=== PATIENT | female | born 1950 | race Caucasian/White ===

== ENCOUNTER → 2019-06-24 10:40 | Outpatient (CLI) | payer BC, SELFPAY ==
--- NOTE | ~2019-06-24 | MM_ITS ---
EXAMINATION: MM screening [facility] BI w gold HISTORY: Screening mammogram TECHNIQUE: Craniocaudal and mediolateral oblique 3-D tomosynthesis images were obtained and synthetic 2-D images were generated. CAD analysis was submitted and interpreted. COMPARISON: 06/16/2018 bilateral digital screening mammogram BREAST PARENCHYMAL COMPOSITION: The breasts are heterogeneously dense, which may obscure small masses . FINDINGS: Bilateral benign calcifications are noted. There is no evidence of suspicious mass, calcifi cation, or architectural distortion to suggest malignancy in either breast. There has been no suspici ous interval change. IMPRESSION: 1. No mammographic evidence of malignancy. 2. Recommend routine screening mammography in one year. BI-RADS Category 2: Benign finding(s). Reviewed, dictated and finalized at location A. E COORDINATOR
== END ==
PROVIDERS: PCP Internal Medicine; Visit Provider Obstetrics & Gynecology
DX: Z12.31 Encounter for screening mammogram for malignant neoplasm of breast (principal)
CPT/HCPCS: 77063; 77067

== ENCOUNTER → 2021-08-28 11:04 | Outpatient (CLI) | payer BC, SELFPAY ==
--- NOTE | ~2021-08-28 | MM_ITS ---
EXAMINATION: MM screening [facility] BI w gold HISTORY: Screening mammogram TECHNIQUE: Craniocaudal and mediolateral oblique 3-D tomosynthesis images were obtained and synthetic 2-D images were generated. CAD analysis was submitted and interpreted. COMPARISON: January 23, 2020, June 16, 2018 screening mammogram examinations BREAST PARENCHYMAL COMPOSITION: The breasts are heterogeneously dense, which may obscure small masses . FINDINGS: There are scattered bilateral benign calcifications. There is no evidence of suspicious mas s, calcification, or architectural distortion to suggest malignancy in either breast. There has been no suspicious interval change. IMPRESSION: 1. No mammographic evidence of malignancy. 2. Recommend routine screening mammography in one year. BI-RADS Category 2: Benign finding(s). Reviewed, dictated and finalized at location A.
== END ==
PROVIDERS: PCP Family Medicine; Visit Provider Obstetrics & Gynecology
DX: Z12.31 Encounter for screening mammogram for malignant neoplasm of breast (principal)
CPT/HCPCS: 77063; 77067

== ENCOUNTER → 2022-01-04 10:22 | Outpatient (CLI) | payer BC, SELFPAY ==
--- NOTE | ~2022-01-04 | DEXA_ITS ---
Bone Density Report Name: JARED MORFIN Age: 71 Sex: Female Ethnicity: White Date of : 1950 Indication: osteopenia; height loss; asthma or emphysema;postmenopausal Referring Provider: BRAD MENDEZ Study: Bone densitometry was performed. Exam Date: January 04, 2022 Accession number: [id number] Bone Density: Region BMD T-score Z-score Classification AP Spine (L1-L4) 0.867 -1.6 0.5 Osteopenia Femoral Neck (Left) 0.705 -1.3 0.5 Osteopenia Total Hip (Left) 0.792 -1.2 0.3 Osteopenia Femoral Neck (Right) 0.738 -1.0 0.8 Normal Total Hip (Right) 0.807 -1.1 0.4 Osteopenia Total Hip Mean 0.800 -1.2 0.4 Osteopenia World Health Organization criteria for BMD impression classify patients as: Normal (T-score at or above -1.0), Osteopenia (T-score between -1.0 and -2.5), or Osteoporosis (T-score at or below -2.5). 10-year Fracture Risk(1): Major Osteoporotic Fracture 9.3% Hip Fracture 1.2% Reported Risk Factors: [place] (), Neck BMD=0.705, BMI=28.8 (1) FRAX(R) Version 3.08. Fracture probability calculated for an untreated patient. Fracture probability may be lower if the patient has received treatment. Previous Exams: Region Exam Age BMD T-score BMD Change BMD Change Date g/cm2 vs Baseline vs Previous AP Spine(L1-L4) 01/04/2022 71 0.867 -1.6 0.028* 0.028* 06/16/2018 67 0.840 -1.9 Total Hip(Left) 01/04/2022 71 0.792 -1.2 0.011 0.011 06/16/2018 67 0.781 -1.3 Total Hip(Right) 01/04/2022 71 0.807 -1.1 0.057* 0.057* 06/16/2018 67 0.750 -1.6 *Denotes significance at 95% confidence level, LSC for AP Spine = 0.022 g/cm2, LSC for Total Hip = 0.027 g/cm2 Clinical Information Provided by Patient: Has the following medical conditions: Asthma or Emphysema Patient maximum height was 68 Menopause Age: 49 No regular weight bearing exercise Drinks caffeinated beverages Onset of menses at age 16 Number of children 3 Impression: The patient has low bone mass, based on the Total Spine T-score. The patient has an estimated ten-year risk of hip fracture of 1.2% and an estimated ten-year risk of major fracture of 9.3%, based on the WHO FRAX algorithm. No significant bone loss was observed. Discussion: BONE DENSITY IS LOW AT ONE OR MORE SKELETAL SITES. This patient's lowest T-score is low at one or more skeletal sites. It meets the World Health Organization's (WHO) criteria
== END ==
PROVIDERS: PCP Family Medicine; Visit Provider Obstetrics & Gynecology
DX: Z78.0 Asymptomatic menopausal state (principal); M85.88 Other specified disorders of bone density and structure, other site; M85.852 Other specified disorders of bone density and structure, left thigh; M85.851 Other specified disorders of bone density and structure, right thigh
CPT/HCPCS: 77080

== ENCOUNTER 2022-06-27 00:54 | Day surgery (SDC) | payer BC, SELFPAY ==
[2022-06-14 13:25] VITALS: BMI 25.4
--- NOTE | 2022-06-26 13:26 | PM.HPGS ---
History of Present Illness History of Present Illness Consent: Risks, benefits, and alternatives have been discussed and questions answered. Patient agrees to proceed with procedure. Chief complaint: neoplasm screening, hx of colon polyps Narrative: Kathy Potter is a 71 year old female Referred for colon cancer screening. She had 2 polyps removed about 6 years ago Review of Systems Review of Systems: All systems reviewed & are unremarkable except as noted in HPI and below PMFSH Past Medical History Medical History Allergies Arthritis Asthma History of herpes zoster Hx of tear of meniscus of knee joint Surgical History Surgical History H/O exploratory laparotomy History of carpal tunnel surgery History of dilation and curettage Family History Family History Father Family history of hypercholesterolemia Hypertension Family history of congestive heart failure, Onset Age: 87 Mother Family history of hypercholesterolemia Hypertension Patient's mother is in good health Sibling Patient's sister is in good health Patient's brother is in good health Grandparent Acute myocardial infarction, Onset Age: 68 Family history of emphysema, Onset Age: 87 Social History Social History Smoking packs per day: 1 Smoking cigarettes per day: 20.0 Smoking status: Former smoker Tobacco type: cigarettes Second hand tobacco smoke exposure: No Smoking end date: 05/12/14 Alcohol intake: current Drinks per week: 3 Substance use: never Substance use type: does not use Lack of Transportation: No Lack of Food: Never True Current Housing: I Have Housing Concerned About Future Housing: No Difficulty Paying Gas/Electric Bills: No Difficulty Paying for Meds: No Currently Unemployed: No Education: High School Diploma/GED Difficulty w/ Childcare or Family Care: No Living arrangements: with family Spiritual care concerns: No Meds Home Medications and Allergies Home Medications Medication Instructions Recorded Confirmed Type cetirizine 10 mg tablet 5 mg PO DAILY PRN allergy symptoms 06/08/21 06/27/22 Rx #90 tabs losartan 100 mg tablet 100 mg PO DAILY #90 tabs 06/08/21 06/27/22 Rx nystatin 100,000 unit/gram topical 1 applic topical BID PRN yeast 08/22/22 02/16/23 Rx ointment symptoms #15 grams omega-3 fatty acids 300 mg capsule 1,500 mg PO DAILY 12/31/21 06/27/22 History cyclobenzaprine 5 mg tablet 5 mg PO TID PRN muscle spasm #30 04/09/22 06/27/22 Rx tabs hydrochlorothiazide 25 mg tablet 25 mg PO DAILY #90 tabs 04/15/22 06/27/22 Rx atorvastatin 40 mg tablet See Rx Instructions .Route 05/31/22 06/27/22 Rx .COMPLEX #90 tabs alprazolam 0.5 mg tablet 0.5 mg PO DAILY PRN Anxiety 06/14/22 06/27/22 History calcium carbonate 600 mg-vitamin 1 tablet PO DAILY 06/14/22 06/27/22 History D3 10 mcg (400 unit) tablet (Calcium 600 + D(3)) Allergies Allergy/AdvReac Type Severity Reaction Status Date / Time No Known Allergies Allergy Verified 06/27/22 10:01 Exam Resp: Auscultation: clear to auscultation bilaterally Cardio: Rate: regular rate Rhythm: regular rhythm GI: GI Palp: Yes Soft to palpation and No Tenderness to palpation present (GI) Assessment and Plan Assessment and plan (1) Colon cancer screening: Code(s): Z12.11 - Encounter for screening for malignant neoplasm of colon Status: Acute Assessment and Plan: Colonoscopy with possible biopsy or polypectomy or cautery or injection of substances.
[2022-06-27 10:02] VITALS: BP 126/78; PULSE 119; RESP 16; TEMP 36.2; O2SAT 98
[2022-06-27] MEDS: LACTATED RINGERS 1,000 ML 150 ML IV CONT (10:04)
--- NOTE | 2022-06-27 10:28 | WPDANESEPPF ---
Anes - Initial Pre Proc Eval Procedure: Operation Date: 06/27/22 11:00 Proposed Procedures p Screening Colonoscopy - Jin Harris MD Date/Time: 06/27/22 10:28 Surgeon: Jin Harris MD Pre Op Diagnosis: neoplasm screening, hx of colon polyps Patient Data Age: 71 Gender: F Height: 1.73 m Weight: 83.2 kg Last Vital Signs Temp 97.2 F L 06/27/22 10:02 Pulse 119 H 06/27/22 10:02 Resp 16 06/27/22 10:02 BP 126/78 06/27/22 10:02 Pulse Ox 98 06/27/22 10:02 O2 Del Method Room Air 06/27/22 10:02 Allergies Allergy/AdvReac Type Severity Reaction Status Date / Time No Known Allergies Allergy Verified 06/27/22 10:01 Home Medications Medication Instructions Recorded Confirmed Type cetirizine 10 mg tablet 5 mg PO DAILY PRN allergy symptoms 06/08/21 06/27/22 Rx #90 tabs losartan 100 mg tablet 100 mg PO DAILY #90 tabs 06/08/21 06/27/22 Rx nystatin 100,000 unit/gram topical 1 applic topical BID PRN yeast 12/31/21 06/27/22 Rx ointment symptoms #15 grams omega-3 fatty acids 300 mg capsule 1,500 mg PO DAILY 12/31/21 06/27/22 History cyclobenzaprine 5 mg tablet 5 mg PO TID PRN muscle spasm #30 04/09/22 06/27/22 Rx tabs hydrochlorothiazide 25 mg tablet 25 mg PO DAILY #90 tabs 04/15/22 06/27/22 Rx atorvastatin 40 mg tablet See Rx Instructions .Route 05/31/22 06/27/22 Rx .COMPLEX #90 tabs alprazolam 0.5 mg tablet 0.5 mg PO DAILY PRN Anxiety 06/14/22 06/27/22 History calcium carbonate 600 mg-vitamin 1 tablet PO DAILY 06/14/22 06/27/22 History D3 10 mcg (400 unit) tablet (Calcium 600 + D(3)) Patient hx anesthesia problems: none Family hx anesthesia problems: none Results Review: All pre-operative results and documents have been reviewed as part of the pre-operative evaluation. [facility] Past Medical History Medical History Allergies Arthritis Asthma History of herpes zoster Hx of tear of meniscus of knee joint Surgical History Surgical History H/O exploratory laparotomy History of carpal tunnel surgery History of dilation and curettage Family History Family History Father Family history of hypercholesterolemia Hypertension Family history of congestive heart failure, Onset Age: 87 Mother Family history of hypercholesterolemia Hypertension Patient's mother is in good health Sibling Patient's sister is in good health Patient's brother is in good health Grandparent Acute myocardial infarction, Onset Age: 68 Family history of emphysema, Onset Age: 87 Social History Social History Smoking packs per day: 1 Smoking cigarettes per day: 20.0 Smoking status: Former smoker Tobacco type: cigarettes Second hand tobacco smoke exposure: No Smoking end date: 05/12/14 Alcohol intake: current Drinks per week: 3 Substance use: never Substance use type: does not use Lack of Transportation: No Lack of Food: Never True Current Housing: I Have Housing Concerned About Future Housing: No Difficulty Paying Gas/Electric Bills: No Difficulty Paying for Meds: No Currently Unemployed: No Education: High School Diploma/GED Difficulty w/ Childcare or Family Care: No Living arrangements: with family Spiritual care concerns: No Anes - Eval Final PreProcedure Day of Procedure 06/27/22 10:28 Patient weight: overweight Heart: regular rate and rhythm Lungs: clear to auscultation Airway: Mallampati scale class II Neurological: alert and oriented Last oral intake: >/= 8 hours ASA classification: II Emergent: no Anesthetic plan: proceed Results Review: All pre-operative results and documents have been reviewed as part of the pre-operative evaluation. Informed Consent: The patient's anestheti
[2022-06-27 11:41] VITALS: BP 115/80; PULSE 87; RESP 24; O2SAT 94
[2022-06-27 11:51] VITALS: BP 113/69; PULSE 83; RESP 20; O2SAT 96
[2022-06-27 12:01] VITALS: BP 112/71; PULSE 82; RESP 20; O2SAT 93
== END 2022-06-27 12:14 | disposition home or self-care (01) ==
PROVIDERS: PCP Family Medicine; Visit Provider Internal Medicine Gastroenterology
PROC: 0DJD8ZZ Inspection of Lower Intestinal Tract, Via Natural or Artificial Opening Endoscopic (ICD-10-PCS; CPT 45378; principal; 2022-06-27 11:00)
DX: Z12.11 Encounter for screening for malignant neoplasm of colon (principal); K62.1 Rectal polyp; K57.30 Diverticulosis of large intestine without perforation or abscess without bleeding; Z87.891 Personal history of nicotine dependence
CPT/HCPCS: 45385; 88305; J2704; J7120

== ENCOUNTER 2022-07-29 12:42 | Outpatient (CLI) | payer BC, SELFPAY ==
--- NOTE | 2022-07-29 14:03 | ECG_ITS ---
Measurements Intervals [place] Rate: 97 P: 35 ID: 180 QRS: 1 QRSD: 73 T: 18 QT: 353 QTc: 449 Interpretive Statements SINUS RHYTHM CANNOT RULE OUT SEPTAL INFARCT, AGE INDETERMINATE CONSIDER INFERIOR INFARCT, AGE INDETERMINATE ABNORMAL ECG NO PREVIOUS ECG AVAILABLE FOR COMPARISON Electronically Signed On 07-29-2022 14:55:45 CDT by David Seth D.O.
[2022-07-29 14:40] LABS: Anion Gap 7 mmol/L (8-16); Blood Urea Nitrogen 21 mg/dL (7-17); Calcium 9.6 mg/dL (8.4-10.2); Carbon Dioxide 29 mmol/L (22-30); Chloride 102 mmol/L (98-107); Estimated Glomerular Filt Rate 49; Glucose 114 mg/dL (65-110); Potassium 3.8 mmol/L (3.4-5.0); Sodium 138 mmol/L (137-145)
== END 2022-07-29 12:43 | disposition home or self-care (01) ==
LOC: ANHLAB 12:46
PROVIDERS: PCP Family Medicine; Visit Provider Orthopaedic Surgery
DX: Z01.818 Encounter for other preprocedural examination (principal); R94.31 Abnormal electrocardiogram [ECG] [EKG]
CPT/HCPCS: 36415; 80048; 93005

== ENCOUNTER → 2022-12-05 11:06 | Outpatient (CLI) | payer BC, SELFPAY ==
--- NOTE | ~2022-12-05 | MM_ITS ---
EXAMINATION: MM screening [facility] BI w gold HISTORY: Screening mammogram TECHNIQUE: Craniocaudal and mediolateral oblique 3-D tomosynthesis images were obtained and synthetic 2-D images were generated. CAD analysis was submitted and interpreted. COMPARISON: 08/28/2021, 06/24/2019, 06/16/2018 BREAST PARENCHYMAL COMPOSITION: The breasts are heterogeneously dense, which may obscure small masses . FINDINGS: No suspicious mass, calcification, or architectural distortion are identified in either reed ast to suggest malignancy. There has been no suspicious interval change. IMPRESSION: 1. No mammographic evidence of malignancy. 2. Recommend routine screening mammography in one year. BI-RADS Category 1: Negative Reviewed, dictated and finalized at location A.
== END ==
PROVIDERS: PCP Obstetrics & Gynecology; Visit Provider Obstetrics & Gynecology
DX: Z12.31 Encounter for screening mammogram for malignant neoplasm of breast (principal)
CPT/HCPCS: 77063; 77067

== ENCOUNTER 2023-11-18 09:48 | Outpatient (CLI) | payer BC, SELFPAY ==
[2023-11-18 13:15] LABS: Alanine Aminotransferase 18 U/L (6-35); Albumin Level 4.3 g/dL (3.5-5.1); Alkaline Phosphatase 80 U/L (38-126); Anion Gap 10 mmol/L (4-12); Aspartate Amino Transferase 75 U/L (14-36); Bilirubin,Total 0.7 mg/dL (0.2-1.3); Blood Urea Nitrogen 35 mg/dL (7-17); Calcium 10.1 mg/dL (8.4-10.2); Carbon Dioxide 29 mmol/L (22-30); Chloride 101 mmol/L (98-107); Cholesterol 176 mg/dL (0-200); Estimated Glomerular Filt Rate 32; Glucose 85 mg/dL (65-110); HDL Direct 65 mg/dL; Potassium 3.5 mmol/L (3.4-5.0); Sodium 140 mmol/L (137-145); Triglycerides 183 mg/dL (<150)
[2023-11-18 13:24] LABS: LDL Cholesterol Direct 75 mg/dL
[2023-11-18 13:31] LABS: Free T4 Free Thyroxine 1.33 ng/mL (0.78-2.19)
== END 2023-11-18 09:49 | disposition home or self-care (01) ==
LOC: ANHGOSHLAB 09:49
PROVIDERS: PCP Family Medicine; Visit Provider Family Medicine
DX: E03.9 Hypothyroidism, unspecified (principal); E78.5 Hyperlipidemia, unspecified; Z13.228 Encounter for screening for other metabolic disorders
CPT/HCPCS: 36415; 80053; 80061; 84439; 84443

== ENCOUNTER 2023-11-26 10:54 | Outpatient (CLI) | payer BC, SELFPAY ==
[2023-11-26 13:20] LABS: Anion Gap 10 mmol/L (4-12); Blood Urea Nitrogen 30 mg/dL (7-17); Calcium 10.2 mg/dL (8.4-10.2); Carbon Dioxide 30 mmol/L (22-30); Chloride 97 mmol/L (98-107); Estimated Glomerular Filt Rate 44; Glucose 101 mg/dL (65-110); Sodium 137 mmol/L (137-145)
== END 2023-11-26 10:55 | disposition home or self-care (01) ==
LOC: ANHGOSHLAB 10:55
PROVIDERS: PCP Family Medicine; Visit Provider Family Medicine
DX: Z13.228 Encounter for screening for other metabolic disorders (principal)
CPT/HCPCS: 36415; 80048

== ENCOUNTER 2023-12-09 14:31 | Emergency (ER) | payer BC, SELFPAY ==
--- NOTE | ~2023-12-09 | XR_ITS ---
EXAMINATION: XR foot RT 2V DATE: 12/09/2023 15:17 INDICATION: Right great toe swelling. TECHNIQUE: 2 views of right foot were obtained. COMPARISON: None. FINDINGS: There is mild hallux valgus. No fracture. There is severe osteoarthritis of first metatarso phalangeal joint and mild to moderate osteoarthritis of many of the interphalangeal joints. There are enthesophytes at the posterior and plantar aspects of calcaneal tuberosity. IMPRESSION: 1. Polyarticular osteoarthritis. 2. Mild hallux valgus. Reviewed, dictated and finalized at location A.
[2023-12-09 14:42] VITALS: BP 126/77; PULSE 100; RESP 18; TEMP 36.7; O2SAT 100
--- NOTE | 2023-12-09 15:00 | ED.GENADULT ---
HPI - General Adult General Chief complaint: Skin/Abscess/Foreign Body Stated complaint: right foot big toe swollen/pain Time Seen by Provider: 12/09/23 14:50 Source: patient, RN notes reviewed and old records reviewed Mode of arrival: ambulatory Limitations: no limitations History of Present Illness HPI narrative: 73 year old female who presents to [facility] care with complaints of throbbing pain to her right great toe since yesterday with redness area to the ist metatarsophalangeals joint.Patient reports that she is concerned for any infection there has had prior MRSA infection in past to her finger, no open skin tissue noted to foot or toe area, some warmth noted at right ist toe joint. Patient reports throbbing pain rates as 11/18 has not taken any OTC medications for her pain. Patient admits to going to [employer] lately with her mother and has had some rich foods. does drink some wine on occasion, is on HCTZ. MD complaint: right foot great toe swelling and redness metatarsophalangeal joint. Onset (ago): day(s) (day 2 of symptoms) Location: right and lower extremity (great toe and joint) Severity scale (1-10): 7 Quality: other (throbbing) Treatments prior to arrival: none Related Data Home Medications Medication Instructions Recorded Confirmed calcium carbonate 600 mg-vitamin 1 tablet PO DAILY 06/14/22 12/09/23 D3 10 mcg (400 unit) tablet (Calcium 600 + D(3)) Allergies Allergy/AdvReac Type Severity Reaction Status Date / Time No Known Allergies Allergy Verified 12/09/23 14:43 Review of Systems Review of Systems: CONSTITUTIONAL: Denies fever, chills, or sweats. EYES: Denies visual changes, redness, or discharge. ENT: Denies rhinorrhea, congestion, sore throat, or otalgia. CARDIOVASCULAR: Denies chest pain, palpitations, or edema. RESPIRATORY: Denies cough or dyspnea. GASTROINTESTINAL: Denies abdominal pain, nausea, vomiting, or diarrhea. GENITOURINARY: Denies dysuria or hematuria. SKIN: Denies rash or itching. MUSCULOSKELETAL: Denies back pain, positive for right great toe pain and swelling with redness at joint, or myalgia. NEUROLOGIC: Denies headache, numbness, or weakness. PSYCHIATRIC: Positive for history of anxiety or depression. All systems reviewed & are unremarkable except as noted in HPI and below PMFSH Past Medical History Medical History Allergies Arthritis Asthma History of herpes zoster Hx of tear of meniscus of knee joint Surgical History Surgical History H/O exploratory laparotomy H/O: knee surgery History of carpal tunnel surgery History of dilation and curettage Family History Family History Father Family history of hypercholesterolemia Hypertension Family history of congestive heart failure, Onset Age: 87 Mother Family history of hypercholesterolemia Hypertension Patient's mother is in good health Sibling Patient's sister is in good health Patient's brother is in good health Grandparent Acute myocardial infarction, Onset Age: 68 Family history of emphysema, Onset Age: 87 Social History Social History Smoking packs per day: 1 Smoking cigarettes per day: 20.0 Smoking status: Former smoker Tobacco type: cigarettes Second hand tobacco smoke exposure: No Smoking end date: 05/12/14 Alcohol intake: current Drinks per week: 3 Substance use: never Substance use type: does not use Lack of Transportation: No Lack of Food: Never True Current Housing: I Have Housing Concerned About Future Housing: No Difficulty Paying Gas/Electric Bills: No Difficulty Paying for Meds: No Currently Unemployed: No Education: High School Diploma/GED Difficulty w/ Childcare or Family Care: No Living arrangement
== END 2023-12-09 15:40 | disposition home or self-care (01) ==
PROVIDERS: Emergency Provider Registered Nurse; PCP Family Medicine
DX: M79.674 Pain in right toe(s) (principal); M19.071 Primary osteoarthritis, right ankle and foot; F17.210 Nicotine dependence, cigarettes, uncomplicated; M19.90 Unspecified osteoarthritis, unspecified site; J45.909 Unspecified asthma, uncomplicated
CPT/HCPCS: 73620; 99213; G0463

== ENCOUNTER 2023-12-16 13:29 | Outpatient (CLI) | payer BC, SELFPAY ==
[2023-12-16 19:32] LABS: Uric Acid 6.9 mg/dL (2.5-7.5)
== END 2023-12-16 13:30 | disposition home or self-care (01) ==
LOC: ANHGOSHLAB 13:30
PROVIDERS: PCP Family Medicine; Visit Provider Family Medicine
DX: M10.9 Gout, unspecified (principal)
CPT/HCPCS: 36415; 84550

== ENCOUNTER 2024-01-07 14:10 | Outpatient (CLI) | payer BC, SELFPAY ==
--- NOTE | ~2024-01-07 | MM_ITS ---
EXAMINATION: MM screening [facility] BI w gold HISTORY: Screening TECHNIQUE: Craniocaudal and mediolateral oblique 3-D tomosynthesis images were obtained and synthetic 2-D images were generated. CAD analysis was submitted and interpreted. COMPARISON: Comparison to multiple prior studies sequentially, with oldest reviewed study dated 09/2018. BREAST PARENCHYMAL COMPOSITION: Not dense: There are scattered areas of fibroglandular density. FINDINGS: There is no evidence of suspicious mass, calcification, or architectural distortion to sugg est malignancy in either breast. There has been no suspicious interval change. IMPRESSION: 1. No mammographic evidence of malignancy. 2. Recommend routine screening mammography in one year. BI-RADS Category 1: Negative Reviewed, dictated and finalized at location B.
== END 2024-01-07 14:11 ==
LOC: MICIMG 14:12
PROVIDERS: PCP Family Medicine; Visit Provider Nurse Practitioner Family
DX: Z12.31 Encounter for screening mammogram for malignant neoplasm of breast (principal)
CPT/HCPCS: 77063; 77067

== ENCOUNTER 2024-07-13 07:58 | Outpatient (CLI) | payer BC, SELFPAY ==
--- NOTE | 2024-07-13 13:07 | WPDPFTINT ---
PFT Procedure Performed PFT Procedure Performed Spirometry with Pre/Post Bronchodilator Plethysmography (Lung Vol) Diffusing Cap (DLCO) Flow Vol Loop PFT Interpretation Lung volumes were measured with the body plethysmography method. Lung volumes are unremarkable. Spirometry showed normal expiratory flow rates and a normal FEV1 to FVC ratio 75%. Following administration of a bronchodilator there was significant increase in the forced vital capacity. Lung diffusion capacity is within the normal range at 83% predicted. The flow-volume loop is unremarkable. This significant response to bronchodilators may indicate underlying hyperreactive airway disease. Clinical correlation advised. Impression: Spirometry, lung volumes, and lung diffusion capacity all within the normal range. Significant response to bronchodilators on this testing.
== END 2024-07-13 07:59 | disposition home or self-care (01) ==
PROVIDERS: PCP Family Medicine; Visit Provider Family Medicine
DX: R06.2 Wheezing (principal)
CPT/HCPCS: 94060; 94726; 94729

== ENCOUNTER 2024-10-25 14:51 | Outpatient (CLI) | payer BC, SELFPAY ==
--- NOTE | ~2024-10-25 | DEXA_ITS ---
Bone Density Report Name: JARED MORFIN Age: 74 Sex: Female Ethnicity: White Date of : 1950 Indication: postmenopausal; screening for osteoporosis; height loss; Referring Provider: NEWTON GUTHRIE Study: Bone densitometry was performed. Exam Date: October 25, 2024 Accession number: [id number] Bone Density: Region BMD T-score Z-score Classification AP Spine(L1-L4) 0.848 -1.8 0.5 Osteopenia Femoral Neck (Left) 0.673 -1.6 0.4 Osteopenia Total Hip (Left) 0.845 -0.8 0.9 Normal Femoral Neck (Right) 0.722 -1.1 0.8 Osteopenia Total Hip (Right) 0.832 -0.9 0.8 Normal Total Hip Mean 0.839 -0.9 0.9 Normal World Health Organization criteria for BMD impression classify patients as: Normal (T-score at or above -1.0), Osteopenia (T-score between -1.0 and -2.5), or Osteoporosis (T-score at or below -2.5). 10-year Fracture Risk(1): Major Osteoporotic Fracture 11% Hip Fracture 1.8% Reported Risk Factors: [place] (), Neck BMD=0.673, BMI=29.3 (1) FRAX(R) Version 3.08. Fracture probability calculated for an untreated patient. Fracture probability may be lower if the patient has received treatment. Clinical Information Provided by Patient: Has used the following medications: MULTI VITAMIN Patient maximum height was 68.0 Menopause Age: 49 No regular weight bearing exercise Onset of menses at age 16 Number of children 3 Impression: The patient has low bone mass, based on the Total Spine T-score. The patient has an estimated ten-year risk of hip fracture of 1.8% and an estimated ten-year risk of major fracture of 11%, based on the WHO FRAX algorithm. Discussion: BONE DENSITY IS LOW AT ONE OR MORE SKELETAL SITES. This patient's lowest T-score is low at one or more skeletal sites. It meets the World Health Organization's (WHO) criteria for ?low bone mass? (T-score between -1.0 and -2.5). The patient's 10-year risk of fracture as calculated by FRAX is less than the threshold where pharmacological therapy is recommended by the National Osteoporosis Foundation (NOF). However, all treatment decisions require clinical judgment and consideration of individual patient factors, including patient preferences, comorbidities, previous drug use, risk factors not captured in the FRAX model (e.g., frailty, falls, vitamin D deficiency, increased bone turnover, interval significant decline in bone density) and possible under or overestimation of fracture risk by FRAX. The patient should follow a healthful lifestyle (good nutrition with adequate calcium and vitamin D, and appropriate weight-bearing exercise). Follow-Up: Consider repeating this study in 2 to 3 years to reassess this patient's status, or sooner if there is some new clinical indication. Reported by: BRODERICK on 10/25/2024 3:34:00 PM. Reviewed, dictated and finalized at location A.
--- OUTSIDE RECORDS SUMMARY | 2024-10-25 16:03 | XMS_ITS | Encounter Summary ---
Author Organization [facility] Health Address [address] [place] [address] Care Team Providers Care Manager Of Software Development Name Role Phone Unavailable Primary Care Provider Unavailabl e Prior Encounters Date Type Department Care Team Description 05/31/2019 Converted 13x Documents [facility] [address] [place] [id number] <No scans attached> 05/31/2019 Converted CPS Chart Documents [facility] [address] [place] [address] <No scans attached> 05/31/2019 Converted 13x Documents [facility] [address] [place] [address] <No scans attached> Plan of Treatment Not on file Procedures Procedure Name Priority Date/Time Associated Diagnosis Comments CANCELLED APPOINTMENT Routine 02/19/2021 2:00 AM CDT PERIO CONSULT Routine 11/14/2020 2:00 AM CDT Visit Diagnoses Not on file
--- OUTSIDE RECORDS SUMMARY | 2024-10-25 16:04 | XMS_ITS | Referral Summary ---
Author Organization [facility] [id number] Address [address] [place] [address] Care Team Providers Care Search Developer Name Role Phone Chon Layne DO Primary Care Provider [phone] Allergies No known active allergies Medications predniSONE (DELTASONE) 10 mg tabletIndicati ons:Gouty arthritis,Arth ralgia of left wrist Take 1 tablet (10 mg) by mouth as directed 3 p.o. daily for 4 days then 2 p.o. daily for 4 days then 1 p.o. daily for 4 days. Take as directed to reduce inflammation. Keep close track of your blood sugar while taking this medication. Collaborating physician Melvin Worrell MD 24 tablet 5 Active acetaminophen- codeine (TYLENOL with CODEINE #3) 300-30 mg per tabletIndicati ons:Gouty arthritis,Arth ralgia of left wrist Take 1 tablet by mouth every 6 (six) hours as needed for pain P.r.n. pain not alleviated by prednisone alone. Take with food. Collaborating physician Melvin Worrell MD 15 tablet 5 Active docusate sodium (COLACE) 100 mg capsule Take 1 capsule (100 mg total) by mouth 2 (two) times a day as needed for constipation Take as directed to help prevent constipation while taking pain medication. Collaborating physician Melvin Worrell MD 20 capsule 5 Active Active Problems Problem Noted Date Diagnosed Date Gouty arthritis 07/02/2024 Arthralgia of left wrist 07/02/2024 Renal insufficiency 07/02/2024 Tobacco use 07/04/2014 Overview (08/15/2016): Tobacco use Knee pain 07/04/2014 Overview (08/15/2016): Knee pain Pain of hand 07/04/2014 Overview (08/15/2016): Hand pain Hypertension 09/25/2013 Overview (08/16/2016): Hypertension Social History Tobacco Use Types Packs/Day Years Used Date Smoking Tobacco: Never Assessed Personal Safety Answer Date Recorded Have you ever been in or are you currently in a harmful physical or emotional relationship or is someone making you feel afraid or unsafe? Denies 07/02/2024 Comments Unknown Sex and Gender Information Value Date Recorded Sex Assigned at Not on file Legal Sex Female 12:15 AM ONCOLOGY TECHNICIAN Gender Identity Not on file Sexual Orientation Not on file Last Filed Vital Signs Vital Sign Reading Time Taken Comments Blood Pressure 143/61 07/02/2024 11:08 AM ONCOLOGY TECHNICIAN Pulse 105 07/02/2024 11:08 AM ONCOLOGY TECHNICIAN Temperature 36.7 C (98.1 F) 07/02/2024 11:08 AM ONCOLOGY TECHNICIAN Respiratory Rate 16 07/02/2024 11:08 AM ONCOLOGY TECHNICIAN Oxygen Saturation 99% 07/02/2024 11:08 AM ONCOLOGY TECHNICIAN Inhaled Oxygen Concentration - - Weight 81.6 kg (180 lb) 07/02/2024 11:08 AM ONCOLOGY TECHNICIAN Height 172.7 cm (5' 8) 07/02/2024 11:08 AM ONCOLOGY TECHNICIAN Body Mass Index 27.37 07/02/2024 11:08 AM ONCOLOGY TECHNICIAN Plan of Treatment Not on file Insurance MEDICARE [facility] FEDERAL MEDICARE Care Teams Search Developer Relationship Specialty Start Date End Date Chon Layne DO [facility] [place] [address] PCP - General Family Medicine 12/09/23
--- OUTSIDE RECORDS SUMMARY | 2024-10-25 16:04 | XMS_ITS | Clinical Summary ---
Author Organization [facility] [id number] Address [address] [place] [address] Care Team Providers Care Dispatcher Radioactive Waste Disposal Name Role Phone Chon Layne DO Primary Care Provider [phone] Allergies No known active allergies Medications predniSONE [...] Hand pain Hypertension 09/25/2013 Overview (08/16/2016): Hypertension Medical History Medical History Date Comments Hx Other Medical Left knee arthr oscopic partial medial and lateral; Comments: JJC 07/04/2014 - Family History Medical History Relation Name Comments Prostate cancer Father 2 Cancer, pros patten; Other Other Family history of arthritis and hypertension.; Relation Name Status Comments Father 1 Alive Father 2 Other Social History Tobacco Use Types Packs/Day Years [...] on file Legal Sex Female 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 Gender Identity Not on file Sexual Orientation Not on file Obstetrics History Last Filed Vital Signs Vital Sign Reading Time Taken Comments Blood Pressure 143/61 07/02/2024 11:08 AM BASE MANAGER Pulse 105 07/02/2024 11:08 AM BASE MANAGER Temperature 36.7 C (98.1 F) 07/02/2024 11:08 AM BASE MANAGER Respiratory Rate 16 07/02/2024 11:08 AM BASE MANAGER Oxygen Saturation 99% 07/02/2024 11:08 AM BASE MANAGER Inhaled Oxygen Concentration - - Weight 81.6 kg (180 lb) 07/02/2024 11:08 AM BASE MANAGER Height 172.7 cm (5' 8) 07/02/2024 11:08 AM BASE MANAGER Body Mass Index 27.37 07/02/2024 11:08 AM BASE MANAGER Plan of Treatment Health Maintenance Due Date Last Done Comments Breast Cancer Screening-Mammogram 1950 Colon Cancer Screening-Colonoscopy 1950 Depression Screening 1950 Fall Risk Assessment 1950 Hepatitis C Screening 1950 Osteoporosis Screening-Bone Density Scan 1950 Hepatitis B Screening 10/14/1969 Zoster Vaccine (1 of 2) 10/14/2001 Well Visit 65+ 10/14/2016 Covid-19 Vaccine (5 - 2023-2 5 season) 2024 03/25/2022, 03/07/2021, 07/24/2020, Additional history exists DTaP/Tdap/Td Vaccine (2 - Td or Tdap) 05/14/2032 05/14/2022 Pneumococcal vaccine 65+ Completed 019, 02/01/2017, 04/16/2013 Influenza Vaccine Completed 06/18/2024, , 03/25/2022, Additional history exists Insurance [address] [facility] [place] [id number] [place] [address] [facility] [address] [facility] [place] [id number] MEDICARE Care Teams Dispatcher Radioactive Waste Disposal Relationship Specialty Start Date End Date Chon Layne DO [address] [facility] [place] [address] [place] [id number] PCP - General Family Medicine 12/09/23
--- OUTSIDE RECORDS SUMMARY | 2024-10-25 16:04 | XMS_ITS | Data Portability ---
Author Organization [place] [facility], Main Office Address [address] [place] [address] Care Team Providers Care Trapeze Artist Name Role Phone JUANA SAENZ Primary Care Provider [phone] JUANA SAENZ Referring Provider [phone] Assessment Encounter Date Assessment Date Assessment LastModified by Organization Details LastModified Time 10/10/2023 10/10/2023 The patient has moderately severe primary osteoarthritis left knee joint with recurrent pain she also has recurrent hip pain due to trochanteric bursitis. At her request under sterile conditions I injected the patient's left knee joint and the patient's right hip trochanteric bursa in the office with 4 cc of 0.5% bupivacaine and 20 mg of Kenalog each. The patient tolerated procedure well. I will see her back as needed she will continue with her home exercise program as instructed by physical therapy for her back, she voiced understanding agrees above plan she will call for any further problems difficulties or questions. Not available 10/10/2023 12:43:22 12/29/2023 12/29/2023 The patient has right knee pain she has mild primary osteoarthritis at worst. We talked about her knee pain today it could be related to the inflammation her big toe maybe she had some sort of pseudogout hard to say or a very short course of gout although her uric acid levels were normal. She did get quite a bit of relief from oral prednisone she just finished the course for a 2nd time and this has helped tremendously. Today we did talk about other options she is going to continue to work with her primary care physician she also wanted a shot of cortisone in the right knee therefore under sterile conditions I injected the patient's right knee joint in the office with 4 cc 0.5% bupivacaine and 20 mg of Kenalog. Patient tolerated procedure well. I will see her back in a month if necessary certainly if her knee pain flares up like it was she will call me or her primary care physician. She voiced understanding agrees above plan she will call for any further problems difficulties or questions. Not available 12/29/2023 09:51:29 03/02/2024 03/02/2024 73-year-old patient presents today for left knee and right hip pain. She states that she gets cortisone injections into bilateral knees and the right hip trochanteric bursa every 3-4 months. She had her right knee injected in December. Her last injection into the left knee and right hip was in September. She states she is about to go on vacation and would like to have the injections before she goes. She denies any new issues or injuries since her last visit. Imaging: X-rays reviewed of the left knee show moderate degenerative osteoarthritic changes with [id number] laterally and osteophyte formation. No acute bony abnormality or fracture. Right hip shows mild degenerative osteoarthritic changes throughout. Physical exam: Left knee. Tenderness with palpitation over lateral knee. Pain with palpitation along posterior knee. Range of motion 0-120. Positive Shemar's. Stable ligaments. Tenderness with palpitation along lateral right hip. No pain with gentle log roll, no pain deep in the groin. She states that she does have pain that starts in her lower back and shoots down the leg. Today we will proceed with left knee and right lateral hip cortisone injections. she states that the shooting pain typically gets better with physical therapy exercises and a course of prednisone. We will prescribe that for her today. We can see her back as needed for pain. She is in agreement with this plan. [email or web address] Not available 03/02/2024 12:44:06 07/15/2024 07/15/2024 The patient has left wrist pain she does have some mild degenerative change here as described. She may have had a flexor tenosynovitis or even maybe a phlebitis as she did report a small red streak going up her volar surface of the forearm. This appears to have resolved she still has some discomfort. She is on Celebrex already she has been advised by her primary care physician not to take any other anti-inflammatory medication so she is going to stick with that. We did talk about the possibility of doing a cortisone injection into the wrist however she declined she states she does not think she could tolerate that. She does have a wrist brace. We did talk about physical therapy she declined formal therapy she is going to do it on her own at home she will use hot soaks and work on her range of motion and gentle strengthening. I did not detect any evidence of a ganglion cyst no other masses or lesions. We did talk about repeating the prednisone I have advised her to give it a week or 2 if her symptoms continue she is going to try 1 more round of oral prednisone, if her symptoms worsen or continue beyond that she is going to come back and see me we could consider doing an MRI scan. If she decides she wants to do formal therapy she will call. She is going to give it a little more time see if it calms down for now. She voiced understanding agreed with the above plan she will call for any further problems difficulties or questions. Not available 07/15/2024 11:46:00 09/17/2024 09/17/2024 The patient has severe primary osteoarthritis left knee joint as described. Talked about treatment options today in detail she wanted proceed with cortisone. Under sterile conditions I injected the patient's left knee joint in the office with 4 cc 0.5% bupivacaine and 20 mg of Kenalog. Patient tolerated the procedure well. If the swelling worsens or she has any signs of infection whatsoever she is instructed to call her knee looks benign today with only a mild knee joint effusion she states this comes and goes in his chronic in nature. I will see her back as needed we could do the shot of cortisone again in 3 months if she would like we could also consider gel shots somewhere down the road she will see how she does. She will continue with current conservative measures call for any further problems difficulties or questions she voiced understanding and agree with the above plan. Not available 09/17/2024 12:22:46 Plan of Treatment Reminders Order Date Submit Date Provider Last Modified By Organization Details Last Modified Time Details Appointments None recorded. Lab None recorded. Referral None recorded. Procedures injection/a spiration joint/bursa (PROC) 2024 025 In-Office Order, Internal Use Only DO Not Attach Compendium DO Not Attach Compendium, Do Not Delete/merge, [id number] 5 12:04:39 injection/a spiration joint/bursa (PROC) 2023 024 [email or web address] In-Office Order, Internal Use Only DO Not Attach Compendium DO Not Attach Compendium, Do Not Delete/merge, [id number] 4 12:43:06 injection/a spiration joint/bursa (PROC) 2023 024 [email or web address] In-Office Order, Internal Use Only DO Not Attach Compendium DO Not Attach Compendium, Do Not Delete/merge, [id number] 4 12:43:06 injection/a spiration joint/bursa (PROC) 2023 024 [email or web address] In-Office Order, Internal Use Only DO Not Attach Compendium DO Not Attach Compendium, Do Not Delete/merge, [id number] 4 09:45:12 injection/a spiration joint/bursa (PROC) 2023 024 In-Office Order, Internal Use Only DO Not Attach Compendium DO Not Attach Compendium, Do Not Delete/merge, [id number] 4 12:03:49 injection/a spiration joint/bursa (PROC) 2023 024 In-Office Order, Internal Use Only DO Not Attach Compendium DO Not Attach Compendium, Do Not Delete/merge, [id number] 4 12:08:54 Surgeries None recorded. Imaging XR, knee, 3 view 2023 024 [email or web address] [facility] [place], [address], [place], [address], 4 12:43:19 XR, hip + pelvis, unilateral 2023 024 [email or web address] [facility] [place], [address], [place], [address], 4 12:43:11 XR, knee 2023 024 [email or web address] [facility] [place], [address] [facility] [address], [place], [address], 4 11:47:48 Medication Orders bupivacaine HCl 0.5 % (5 mg/mL) injection solution 2024 025 [email or web address] [id number], [address], [place], [place], [id number], 5 12:46:11 Kenalog 10 mg/mL suspension for injection 2024 025 [email or web address] [facility], [address], [place], [place], [id number], 5 12:46:11 prednisone 10 mg tablets in a dose pack 2024 025 [email or web address] [facility], [address], [place], [place], [id number], 5 11:48:42 bupivacaine HCl 0.5 % (5 mg/mL) injection solution 2023 024 [facility], [address], [place], [place], [id number], 5 11:07:41 Kenalog 10 mg/mL suspension for injection 2023 024 [facility]2635, [address], [place], [place], [id number], 5 11:08:13 prednisone 10 mg tablets in a dose pack 2023 024 [facility], [address], [place], [place], [id number], 5 11:08:45 bupivacaine HCl 0.5 % (5 mg/mL) injection solution 2023 024 [email or web address] #39538, [address], [place], [place], [id number], 5 11:07:41 Kenalog 10 mg/mL suspension for injection [email or web address] [facility]78389, [address], [place], [place], [id number], 5 11:08:13 bupivacaine HCl 0.5 % (5 mg/mL) injection solution [address] [facility]75091, [address], [place], [place], [id number], 5 11:07:41 Kenalog 10 mg/mL suspension for injection [address] [facility] #55904, [address], [place], [place], [id number], 5 11:08:13 bupivacaine HCl 0.5 % (5 mg/mL) injection solution [address] [facility] #65876, [address], [place], [place], [id number], 5 11:07:41 Kenalog 10 mg/mL suspension for injection [email or web address] [place] [address] [facility] #15728, [address], [place], [place], [id number], 5 11:08:13 bupivacaine HCl 0.5 % (5 mg/mL) injection solution 2023 024 [facility] #87892, [address], [place], [place], [id number], 5 11:07:41 Kenalog 10 mg/mL suspension for injection 2023 024 [facility] #84588, [address], [place], [place], [id number], 5 11:08:13 Patient TargetsNo targets recorded. Patient InstructionsNo instructions recorded. Reason for Referral None Reported. Results Created Date Observation Date Name Description Value Unit Range Abnormal Flag Note LastModifiedBy Organization Detail LastModifiedTime 12/29/19 24 XR, knee No observ ation record ed. [email or web address] [facility] [place] [address] [facility] [address], [place], [address], 12/29/2023 09:52:04 03/02/20 24 XR, knee, 3 view No observ ation record ed. [email or web address] [facility] [place] [address], [place], [address], 03/02/2024 12:43:17 03/02/20 24 XR, hip + pelvi s, unila teral No observ ation record ed. [email or web address] [facility] [place] [address] [facility] [address], [place], [address], 03/02/2024 12:43:09 07/16/19 25 07/02/2024 XR, wrist , 3 or more view No observ ation record ed. Not Available 07/15 16:13:09 Result Notes None recorded. Problems Name Problem SNOMED Code Status Onset Date Resolution Date Notes Provider Name and Address Organization Details Recorded Time Derangemen t of right knee 4908081279602 9109 Active 2021 Not Available [facility] 3 00:53:30 Knee joint effusion 812792547 Active Not Available [facility] 3 00:53:30 Osteoarthr itis of wrist 518343513 Active 2021 Not Available [facility] 3 00:53:30 Tear of medial meniscus of knee 102816443 Active 2021 Not Available [facility] 3 00:53:30 Tear of lateral meniscus of knee 068575705 Active 2021 Not Available [facility] 3 00:53:31 Tear of lateral meniscus of knee 004801437 Active 2021 Not Available [facility] 3 00:53:31 Effusion of joint of left knee 8987412129016 05 Active 2021 Not Available [facility] 3 00:53:31 Enthesopat hy of hip region 56593797 Active Not Available [facility] 3 00:53:31 Knee pain Active Not Available [facility] 3 00:53:31 Pain of right wrist 9500419448712 00 Active 2021 Not Available [facility] 3 00:53:31 Osteoarthr itis 838929145 Active Not Available [facility] 3 00:53:31 Pain of right knee joint 4311096185870 00 Active 2021 Not Available [facility] 3 00:53:31 Pain of hip region 81194305 Active Not Available [facility] 3 00:53:31 Pain of left knee joint 2833146201232 07 Active 2022 Yoko Martines, ATC L null, [place] [facility] 3 14:16:00 Pain of right hip joint 1783707525587 02 Active 2022 Yoko Martines ATC L null, [place] [facility] 3 14:16:06 Osteoarthr itis of left knee joint 7728882880765 09 Active 2022 PASTORA [address]av[address]z [address] [place] [address], [place] [address], [place], [address] , [place] [facility] 3 15:27:23 Trochanter ic bursitis of right hip 8218390911291 00 Active 2022 PASTORA Benavidez [address], [place], [address] , [place] [facility] 3 15:27:35 Osteoarthr itis of right hip joint 3044999253586 07 Active 2022 PASTORA Benavidez [address], [address], [place], [address] , [place] [facility] 3 15:27:44 Low back pain 296643073 Active 2022 Lyn puga, [place] [facility] 3 11:34:43 Lumbar spondyloli sthesis 4498305961170 02 Active 2022 PASTORA Benavidez [address], [address], [place], [address] , [facility] 3 11:50:35 Pain in right sacroiliac joint 9965374143360 9107 Active 2022 PASTORA Benavidez [address], [address], [place], [address] , [facility] 3 11:50:43 Spinal stenosis of lumbar region 52800877 Active 2022 Justin Figueroa MD [address], [address], [place], [address] , [place] [facility] 3 12:27:16 Osteoarthr itis of wrist 948274284 Active 2022 PASTORA Benavidez [address], [address], [place], [address] , [place] [facility] 3 16:33:00 Sprain of right wrist 9245640591549 9103 Active 2022 PASTORA Benavidez [address], [address], [place], [address] , [place] [facility] 3 16:36:45 Lumbar radiculopa thy 431714197 Active 2023 PASTORA Benavidez [address], [address], [place], [address] , [facility] [employer] 4 12:21:13 Pain of left wrist 5630955854048 02 Active 2024 Blanca Manzano CNA null, MD [facility] 5 11:10:53 Problem Notes None recorded. Procedures Surgical History Date Name Laterality Status Provider Name and Address Organization Details Recorded Time 03/02/20 24 Ortho - Cortisone Injection completed Sarah Riley NP [address], [address], [place], [address], [facility] [employer] [facility] 03/02/2024 12:41:02 08/09/19 23 KNEE ARTHROSCOPY WITH MEDIAL MENISCECTOMY (SURG) completed Justin Figueroa MD [address], [address], [place], [address], [employer] 08/15/2022 07:11:24 07/19/19 23 Ortho - Cortisone Injection completed Justin Figueroa MD [address], [address], [place], [address], [employer] [employer] 07/18/2022 11:28:40 Imaging Results None recorded. Procedure Notes None recorded. Medical Equipment None Reported. Allergies No known drug allergies Medications Name Sig Start Date Stop Date Status Note LastModified by Organization Details LastModified Time celecoxib 200 mg capsule TAKE 1 CAPSULE BY MOUTH DAILY active Not Available Not Available No t Available cyclobenz aprine 10 mg tablet 02/25 completed Not Available Not Available Not Available amoxicill in 500 mg capsule 02/15 completed Not Available Not Available Not Available atorvasta tin 40 mg tablet TAKE 1 TABLET BY MOUTH DAILY active Not Available Not Available No t Available bupropion HCl SR 150 mg tablet,12 hr sustained -release TK ONE T PO QD 02/25 completed Not Available Not Available Not Available prednison e 10 mg tablet TAKE 1 TABLET BY MOUTH THREE TIMES DAILY FOR 3 DAYS, 1 TABLET TWICE DAILY FOR 2 DAYS, THEN 1 TABLET ONCE A DAY FOR 1 DAY active Not Available Not Available No t Available desoximet asone 0.25 % topical cream 02/25 completed Not Available Not Available Not Available cetirizin e 10 mg tablet TAKE 1 TABLET BY MOUTH EVERY DAY NEEDED ALLERGY SYMPTOMS active Not Available Not Available No t Available atorvasta tin 10 mg tablet TK 1 T PO QD 07/10 completed Not Available Not Available Not Available azithromy ace 250 mg tablet TAKE 2 TABLETS BY MOUTH DAILY FOR 1 DAY THEN TAKE 1 TABLET BY MOUTH FOR 4 DAYS 03/05 completed Not Available Not Available Not Available pravastat in 40 mg tablet TAKE 1 TABLET BY MOUTH DAILY 03/05 completed Not Available Not Available Not Available ibuprofen 800 mg tablet 07/10 completed Not Available Not Available Not Available nystatin 100,000 unit/gram topical ointment APPLY TOPICALL Y TO THE AFFECTED AREA TWICE DAILY NEEDED FOR YEAST SYMPTOMS 03/05 completed Not Available Not Available Not Available benzonata te 200 mg capsule TAKE 1 CAPSULE BY MOUTH UP TO THREE TIMES DAILY NEEDED FOR COUGH 03/05 completed Not Available Not Available Not Available metoprolo l succinate ER 50 mg tablet,ex tended release 24 hr 02/25 completed Not Available Not Available Not Available hydrocodo ne 5 mg-acetam inophen 325 mg tablet TAKE 1 TABLET BY MOUTH EVERY 4 HOURS NEEDED FOR PAIN active Not Available Not Available No t Available meloxicam 15 mg tablet Take 1 tablet every day by oral route. active Not Available Not Available No t Available bupivacai ne HCl 0.5 % (5 mg/mL) injection solution Take 20 mg by injectio n route. 2024 active Not Available Not Available Not Avai lable prednison e 20 mg tablet TAKE 1 TABLET BY MOUTH TWICE DAILY FOR 5 DAYS 07/15 completed Not Available Not Available Not Available metoprolo l succinate ER 100 mg tablet,ex tended release 24 hr TK 1 T PO QD 02/25 completed Not Available Not Available Not Available promethaz ine 6.25 mg-codein e 10 mg/5 mL syrup 02/25 completed Not Available Not Available Not Available penicilli n V potassium 500 mg tablet 02/25 completed Not Available Not Available Not Available metronida zole 500 mg tablet TAKE 1 TABLET BY MOUTH THREE TIMES DAILY UNTIL ALL TAKEN 02/15 completed Not Available Not Available Not Available acetamino phen 300 mg-codein e 30 mg tablet TAKE 1 TABLET BY MOUTH EVERY 6 HOURS NEEDED FOR PAIN. PAIN NOT ALLEVIAT ED BY PREDNISO NE ALONE. TAKE WITH FOOD active Not Available Not Available No t Available ciproflox acin 250 mg tablet 02/25 completed Not Available Not Available Not Available valacyclo vir 500 mg tablet TAKE 1 TABLET BY MOUTH EVERY 12 HOURS AT ONSET OF SYMPTOMS FOR 3 DAYS DIRECTED 03/05 completed Not Available Not Available Not Available tramadol 50 mg tablet TK 1 T PO ONE TO FOUR TIMES DAILY 02/25 completed Not Available Not Available Not Available prednison e 10 mg tablets in a dose pack Take 1 tab by mouth, 3 times a day for 3 daysTake 1 tab by mouth 2 times a day for 2 daysTake 1 tab by mouth once a day for 1 day 2024 active Not Available Not Available Not Avai lable alprazola m 0.5 mg tablet TAKE 1 TABLET BY MOUTH DAILY NEEDED FOR ANXIETY active Not Available Not Available No t Available prednisol one acetate 1 % eye drops,fernandez pension 06/09 completed Not Available Not Available Not Available pravastat in 10 mg tablet 02/25 completed Not Available Not Available Not Available ciproflox acin 0.3 % eye drops 06/09 completed Not Available Not Available Not Available Kenalog 10 mg/mL suspensio n for injection Take 20 mg by injectio n route. 2024 active [facility]: [phone] 4-20 Not Available Not Available Not Available diclofena c 0.1 % eye drops 06/09 completed Not Available Not Available Not Available clotrimaz ole-betam ethasone 1 %-0.05 % topical cream APPLY TWICE DAILY TO THE AFFECTED AREA OF RIGHT FOOT FOR TWO CONSECUT GENEVA WEEKS. TAKE A SMALL BREAK AND REPEAT NECESSAR Y FOR FLARES active Not Available Not Available No t Available docusate sodium 100 mg capsule TAKE 1 CAPSULE BY MOUTH TWICE DAILY NEEDED FOR CONSTIPA TION TAKE DIRECTED TO HELP PREVENT CONSTIPA TION WHILE TAKING PAIN MEDICATI ON 07/15 completed Not Available Not Available Not Available gabapenti n 300 mg capsule TAKE 1 CAPSULE BY MOUTH EVERY DAY AT BEDTIME active Not Available Not Available No t Available omeprazol e 20 mg capsule,d elayed release TK ONE C PO QD 02/25 completed Not Available Not Available Not Available hydrochlo rothiazid e 25 mg tablet TAKE 1 TABLET BY MOUTH DAILY active Not Available Not Available No t Available clobetaso l 0.05 % topical ointment APPLY TO THE AFFECTED AREA OF PSORIASI S OF FEET NIGHTLY WHEN FLARED FOR NO MORE THAN 2 CONSECUT GENEVA WEEKS IN A ROW TAKE A BREAK FOR A FEW DAYS active Not Available Not Available No t Available azelastin e 137 mcg (0.1 %) nasal spray 02/25 completed Not Available Not Available Not Available levofloxa ace 500 mg tablet 02/25 completed Not Available Not Available Not Available methylpre dnisolone 4 mg tablets in a dose pack 03/05 completed Not Available Not Available Not Available celecoxib 100 mg capsule 02/25 completed Not Available Not Available Not Available oxybutyni n chloride 5 mg tablet TK 1 T PO D 02/25 completed Not Available Not Available Not Available losartan 100 mg tablet TAKE 1 TABLET BY MOUTH DAILY active Not Available Not Available No t Available piroxicam 20 mg capsule TAKE 1 CAPSULE BY MOUTH DAILY 03/05 completed Not Available Not Available Not Available fluticaso ne propionat e 50 mcg/actua tion nasal spray,fernandez pension SHAKE LIQUID AND USE 2 SPRAYS IN EACH NOSTRIL DAILY 06/09 completed Not Available Not Available Not Available sulindac 200 mg tablet 02/25 completed Not Available Not Available Not Available Pneumovax -23 25 mcg/0.5 mL injection syringe 02/25 completed Not Available Not Available Not Available Zetia 10 mg tablet 02/25 completed Not Available Not Available Not Available cyclobenz aprine 5 mg tablet 06/09 completed Not Available Not Available Not Available moxifloxa ace 0.5 % eye drops 02/25 completed Not Available Not Available Not Available ORTHOVISC 30 mg/2 mL intra-art icular syringe Injectio ns given in the office by the doctor. 02/15 completed [facility]: [id number] Not Available Not Available Not Available duloxetin e 60 mg capsule,d elayed release TAKE 1 CAPSULE BY MOUTH DAILY 07/15 completed Not Available Not Available Not Available chlorhexi dine gluconate 0.12 % mouthwash RINSE MOUTH WITH 15 ML FOR 1 MINUTE AND THEN SPIT TWICE DAILY UNTIL GONE 02/15 completed Not Available Not Available Not Available lidocaine (PF) 10 mg/mL (1 %) injection solution In office injectio n administ ered by the provider 06/04 completed [facility] [place]: [phone] Not Available Not Available Not Available hydrochlo rothiazid e 12.5 mg tablet TAKE 1 TABLET BY MOUTH DAILY 03/05 completed Not Available Not Available Not Available Bystolic 10 mg tablet TK 1 T PO QD 02/25 completed Not Available Not Available Not Available Durezol 0.05 % eye drops 02/25 completed Not Available Not Available Not Available Prevnar 13 (PF) 0.5 mL intramusc ular syringe 02/25 completed Not Available Not Available Not Available Suprep Bowel Prep Kit 17.5 gram-3.13 gram-1.6 gram oral solution 02/25 completed Not Available Not Available Not Available ropivacai ne (PF) 5 mg/mL (0.5 %) injection solution in office 06/09 completed [facility] [place] [address] 4 Not Available Not Available Not Available Ilevro 0.3 % eye drops,fernandez pension 02/25 completed Not Available Not Available Not Available Lotemax 0.5 % eye gel drops 02/25 completed Not Available Not Available Not Available Virtussin AC 10 mg-100 mg/5 mL oral liquid TK 5 TO 10 ML PO QHS PRN COU 02/25 completed Not Available Not Available Not Available Fluarix Quad 0380-4097 (PF) 60 mcg (15 mcg x 4)/0.5 mL IM syringe 02/25 completed Not Available Not Available Not Available Fluzone Quad 4901-2015 60 mcg (15 mcg x 4)/0.5 mL IM suspensio n 02/25 completed Not Available Not Available Not Available Fluzone High-Dose 7679-1419 (PF) 180 mcg/0.5 mL intramusc ular syringe 02/25 completed Not Available Not Available Not Available Fluzone High-Dose 6911-4735 (PF) 180 mcg/0.5 mL intramusc ular syringe 02/25 completed Not Available Not Available Not Available Lotemax SM 0.38 % eye gel drops 03/05 completed Not Available Not Available Not Available Fluad 2018-20 65yr up(PF)45 mcg(15 mcgx3)/0. 5 mL intramusc ular syringe ADM 0.5ML IM UTD active Not Available Not Available No t Available Paxlovid 300 mg (150 mg x 2)-100 mg tablets in a dose pack TAKE 2 NIRMATRE LVIR TABLETS AND 1 RITONAVI R TABLET TOGETHER BY MOUTH TWICE DAILY FOR 5 DAYS 07/15 completed Not Available Not Available Not Available Breyna 80 mcg-4.5 mcg/actua tion HFA aerosol inhaler INHALE 2 PUFFS BY MOUTH EVERY 12 HOURS active Not Available Not Available No t Available Vitals Date Recorded Body height Body mass index (BMI) Body weight Provider Name and Address Organization Details Last Updated DateTime 07/15/2024 172.72 cm 27.4 kg/m2 15941.63 g Blanca Jose Juan, [facility] 07/15/2024 11:06:57 Date Recorded Body height Body mass index (BMI) Body weight Provider Name and Address Organization Details Last Updated DateTime 09/17/2024 172.72 cm 27.1 kg/m2 84561.44 g Blanca Little [employer] [facility] 09/17/2024 12:02:23 Date Recorded Body height Body mass index (BMI) Body weight Provider Name and Address Organization Details Last Updated DateTime 10/10/2023 172.72 cm 27.4 kg/m2 70927.63 g [employer] [facility] 10/10/2023 12:01:15 Date Recorded Body height Body mass index (BMI) Body weight Provider Name and Address Organization Details Last Updated DateTime 12/29/2023 172.72 cm 27.1 kg/m2 14779.44 g [email or web address] [facility] 12/29/2023 09:18:51 Date Recorded Body height Body mass index (BMI) Body weight Provider Name and Address Organization Details Last Updated DateTime 03/02/2024 172.72 cm 27.2 kg/m2 12858.03 g Mimi Hallman [facility] [employer] 03/02/2024 10:29:17 Social History Question Answer Notes LastModified by Organizat ion Details LastModified Time Tobacco Smoking Status Former Smoker Not Available [employer] 07/10/2022 00:46:23 When Did You Quit Smoking? 6-10yearssi sebastián kennedy 10 Years Ago Was Smoking 1 Pack A Day Information not available 07/15/2024 What Was The Date Of Your Most Recent Tobacco Screening? 07/11/2020 [id number] Information not available 07/10/2022 How Many Years Have You Smoked Tobacco? 30 Information not available 07/15/2024 Sex: Unknown Functional Status Question Answer Note LastModified by Organizat ion Details LastModified Time What is your level of alcohol consumption? Moderate [id number] Information not available 07/10/2022 Mental Status None recorded. Family History Relationship Description Onset Age of this Age Resolved Age Notes LastModified by Organization Details LastModified Time Father Heart disease [id number] Not available 07/10/2022 00:47:38 Father Hypertensive disorder [id number] Not available 07/10/2022 00:47:38 Mother Heart disease [id number] Not available 07/10/2022 00:47:38 Father Family history of malignant neoplasm prosta te Not available 06/09/2023 10:22:22 Medical History Condition Response ARTHRITIS Y GOUT Y BLOOD CLOTS Y HYPERTENSION Y Gynecological HistoryNo gynecological history recorded. Obstetrics History GPAL:G 0 P 0 0 0 0 Past Encounters Encounter ID Performer Location Encounter Start Date Encounter Closed Date Diagnosis/Indication Diagnosis SNOMED-CT Code Diagnosis ICD10 Code Diagnosis Note [id number] PASTORA Benavidez[facility] [address] [place] [address] 07/11/2020 00:00:00 07/11/2020 16:35:01 [id number] PASTORA Benavidez [facility] [address] [place] [address] 07/18/2020 00:00:00 07/18/2020 14:43:07 [id number] Joshua Goldstein, PA [facility] [address] [place] [address] 07/25/2020 00:00:00 07/25/2020 14:33:17 [id number] Justni Figueroa MD [facility] [address] [place] [address] 11/23/2020 00:00:00 11/23/2020 15:13:18 [id number] PASTORA Benavidez [facility] [address] [place] [address] 02/15/2021 00:00:00 02/15/2021 15:40:57 [id number] Justin Figueroa MD [facility] [address] [place] [address] 06/04/2021 00:00:00 06/04/2021 11:57:58 [id number] Justin Figueroa MD [facility] [address] [place] [address] 09/03/2021 00:00:00 09/03/2021 11:20:29 [id number] Justin Figueroa MD [facility] [address] [place] [address] 12/03/2021 00:00:00 12/03/2021 13:15:37 [id number] Justin Figueroa MD [facility] [address] [place] [address] 03/05/2022 00:00:00 03/05/2022 14:34:09 [id number] Justin Figueroa MD [facility] [address] [place] [address] 04/11/2022 00:00:00 04/11/2022 12:08:24 [id number] Justin Figueroa MD [facility] [address] [place] [address] 05/09/2022 00:00:00 05/09/2022 13:26:50 [id number] Justin Figueroa MD [facility] [address] [place] [address] 05/31/2022 00:00:00 05/31/2022 14:34:13 [id number] Justin Figueroa MD [facility] [address] [place] [address] 07/18/2022 10:52:49 07/18/2022 12:14:46 Osteoarthritis 832476346 M17.12 Pain of right wrist 3169 843789 58129 M25.531 Osteoarthr itis of wrist 300149803 M19.031 Effusion o f joint of left knee 7765108984 86183 M25.462 Pain of ri ght knee joint 6725936008 30058 M25.561 Derangemen t of right knee 6239228104 2629772 M23.91 Tear of la teral meniscus of knee 483797205 S83.281A Tear of me dial meniscus of knee 297954321 S83.241A Pre-surger y evaluation 866842907 Z01.818 [id number] Justin Figueroa MD [facility] [address] [place] [address] 08/20/2022 15:42:46 08/20/2022 16:24:26 Tear of medial meniscus of knee 838732053 S83.241A Tear of la teral meniscus of knee 215520252 S83.281A [id number] Justin Figueroa MD [facility] [place] [facility] [address] [place] [address] 09/19/2022 14:12:43 09/19/2022 16:08:37 Tear of medial meniscus of knee 219670458 S83.241A Tear of la teral meniscus of knee 120896819 S83.281A Pain of le ft knee joint 9092678825 48320 M25.562 Pain of ri ght hip joint 1270079814 09331 M25.551 Osteoarthr itis of left knee joint 4853726516 62311 M17.12 Trochanter ic bursitis of right hip 8527732204 29676 M70.61 Osteoarthr itis of right hip joint 7096305855 83143 M16.11 [id number] Justin Figueroa MD [facility] [place] [facility] [address] [place] [address] 11/18/2022 11:02:13 11/18/2022 13:41:07 Tear of medial meniscus of knee 004353084 S83.241D Tear of la teral meniscus of knee 929883181 S83.281D Pain of le ft knee joint 2744749015 13980 M25.562 Pain of ri ght hip joint 1759056503 10771 M25.551 Osteoarthr itis of left knee joint 3649624697 87090 M17.12 Osteoarthr itis of right hip joint 1723871089 75250 M16.11 Low back pain 395649645 M54.50 Lumbar spondylolisthesis 5988252382 79613 M43.16 Pain in ri ght sacroiliac joint 8473676244 1508936 M53.3 [id number] Justin Figueroa MD [facility] [address] [place] [address] 11/28/2022 11:44:11 11/28/2022 12:29:07 Tear of medial meniscus of knee 165253262 S83.241D Tear of la teral meniscus of knee 938065943 S83.281D Pain of le ft knee joint 8620052208 48038 M25.562 Pain of ri ght hip joint 5553687993 26384 M25.551 Osteoarthr itis of left knee joint 4886221978 82166 M17.12 Osteoarthr itis of right hip joint 0359171144 25920 M16.11 Low back pain 070758444 M54.50 Pain in ri ght sacroiliac joint 9353616335 1659477 M53.3 Lumbar spondylolisthesis 4678862883 65396 M43.16 Spinal james nosis of lumbar region 50299994 M48.052 [id number] Troy Reyes MD [facility] [address] [place] [address] 02/07/2023 15:10:04 02/07/2023 15:56:27 Tear of medial meniscus of knee 780851880 S83.241D Tear of la teral meniscus of knee 178185569 S83.281D Osteoarthr itis of left knee joint 0677573617 99219 M17.12 Osteoarthr itis of right hip joint 9656727923 73789 M16.11 Pain in ri ght sacroiliac joint 6158838881 0923446 M53.3 Trochanter ic bursitis of right hip 3461751652 76268 M70.61 Pain of right wrist 3169 753792 03747 M25.531 Osteoarthr itis of wrist 989453625 M19.031 Sprain of right wrist 11 81589451 0636449 S63.501A [id number] Troy Reyes MD [facility] [address] [place] [address] 06/09/2023 10:04:07 06/09/2023 11:08:56 Pain in right sacroiliac joint 0896376080 3985331 M53.3 Pain of ri ght hip joint 4827801824 65249 M25.551 Osteoarthr itis of left knee joint 1035234141 31187 M17.12 Osteoarthr itis of right hip joint 4337907670 91590 M16.11 Pain of le ft knee joint 5808683927 43601 M25.562 Trochanter ic bursitis of right hip 1390749043 96560 M70.61 Low back pain 914387460 M54.50 Lumbar radiculopathy 128 673269 M54.16 Spinal james nosis of lumbar region 86488205 M48.606 [id number] Melvin Crain MD [facility] [address] [place] [address] 10/10/2023 11:53:32 10/13/2023 14:48:08 Pain in right sacroiliac joint 2055752093 3844946 M53.3 Pain of ri ght hip joint 0290436056 53483 M25.551 Trochanter ic bursitis of right hip 0180976975 94182 M70.61 Osteoarthr itis of right hip joint 4778294774 77049 M16.11 Osteoarthr itis of left knee joint 1087560483 29351 M17.12 Pain of le ft knee joint 9812900598 96939 M25.562 Lumbar spondylolisthesis 6016935039 93650 M43.16 Low back pain 776395705 M54.50 Spinal james nosis of lumbar region 93990889 M48.645 [id number] Melvin Crain MD [facility] [address] [place] [address] 12/29/2023 09:13:40 12/29/2023 09:52:34 Derangement of right knee 4357013375 4818809 M23.91 Pain of ri ght knee joint 0265100301 37515 M25.561 Pain in ri ght sacroiliac joint 2873532563 3682972 M53.3 Pain of ri ght hip joint 7759774479 36983 M25.551 Trochanter ic bursitis of right hip 3391857150 89700 M70.61 Osteoarthr itis of right hip joint 1843967242 29256 M16.11 [id number] Melvin Crain MD [facility] [address] [place] [address] 03/02/2024 10:24:48 03/02/2024 11:10:52 Pain of right knee joint 8214488337 30192 M25.561 Pain of ri ght hip joint 6566442180 11442 M25.309 [id number] Melvin Crain MD [facility] [address] [place] [address] 07/15/2024 10:50:37 07/15/2024 11:36:28 Pain of left wrist 3597049539 09359 M25.684 [id number] Melvin Crain MD [facility] [address] [place] [address] 09/17/2024 11:59:43 09/17/2024 12:16:56 Osteoarthritis of left knee joint 6314110605 87993 M17.12 Pain of le ft knee joint 9987373086 02896 M25.562 Health Concerns Section Related Observation LastModified by Organization Detai ls LastModified Time None Recorded Concern Status LastModified by Organization Details LastModified Time None Recorded Advance Directives Directive None Recorded Payers Insurance Date Sequence Insurance Name Policy Number Policy Zarate Covered Member ID Zarate Member ID Guarantor Name 10/08/2024 1 [place] ([place] 113 Wagner Potter Jr [id number] Kathy Potter 07/15/2024 2 [place] [employer] Kathy Potter [id number] Kathy Potter Notes Date Note Type Note Provider Name and Address Organization Details Recorded Time 10/10/2023 text/html Patient returns with left knee pain and right hip trochanteric pain. She has been seen for these issues chronically. She was also having some back pain and went to pain management she saw them they referred her to physical therapy she had an 8 week course of physical therapy and this helped tremendously with her back. She is still having some tenderness and pain over the trochanteric region her last injections were a little over 4 months ago. Only recently her pain has started to return in the left knee and right hip. She denies any groin or thigh pain she does have moderately severe primary osteoarthritis in the left knee with tricompartmental changes and narrowing. Her knee was feeling very good until a few days ago she decided she would like a shot of cortisone in her left knee and right hip she comes in today for recheck and evaluation. She does take ibuprofen and Tylenol zgti-fms-dieucat which gives her pretty good relief but she gets better relief with the cortisone as well. Denies any new problems no new trauma or injury. PASTORA Benavidez [address] [place] [address], [facility] [address], [place], [address], [facility] [employer] 10/10/2023 12:43:38 12/29/2023 text/html patient returns for new problem today. She states around December 08 she started having some inflammation in her right great toe she was treated with oral prednisone there was a thought that maybe this was gout. The inflammation went down in her toe is doing much better. Then soon afterwards her right knee started bothering her again was having a lot of pain and a little bit of swelling in the knee she never had any fevers chills night sweats no constitutional symptoms otherwise felt well. Denies any trauma or injury to the knee. She then took another course of oral prednisone which helped quite a bit she still has some residual aching pain about 3-4 on a scale of 1-10 now whereas previously it was a 10. She thought at 1 point she was going to have to be admitted to the hospital because the pain was so bad. She has been taking ibuprofen however her primary care physician who she saw recently evaluated her for uric acid levels which were negative but told her that her kidney function was somewhat decreased and that she should stop taking the ibuprofen. This has caused her knee to hurt a little more. She is able to bear full weight has a mild limp has had some previous knee problems years ago but nothing recently. Today she denies any effusion or swelling no mechanical symptoms otherwise is doing much better. She comes in today to talk about further evaluation treatment if necessary. We will get new x-rays today of her right knee. PASTORA Benavidez [address] [place] [address], [facility] [address], [place], [address], [place] [facility] 12/29/2023 09:52:39 07/15/2024 text/html The patient retu rns with a new problem today. She is complaining of left wrist pain on the volar surface this started 2 weeks ago. She denies any specific trauma or injury she states she did lift a heavy olmos at 1 point but did not think much of it at the time. The pain got so severe that she went to [facility] where she went to the ER and had x-rays performed. X-rays demonstrated no acute findings no fractures lesions or masses. She does have some osteoarthritic change of the distal radial ulnar joint with some small hypertrophic spurring and a little bit of a scooped out appearance of the distal radius on the ulnar side which may be articulating with the radial side of the distal ulna. She also has some irregularity of the distal radial joint surface. I have reviewed the x-rays in detail today with the patient I agree with the above findings. She denies any previous fractures no previous trauma or injury and was not having any pain in the left wrist prior to 2 weeks ago. She states at 1 point she had a little bit of red streaking from the left wrist to the distal 3rd of the forearm which later turned into what appears to be resolving very minimal bruising. She was given oral prednisone and is currently on Celebrex neither of which are giving her much relief. If she uses her hand to manager retirement or flex she will get some cramping in the distal forearm into the wrist she denies any numbness or tingling no significant swelling or effusion. She did also have a venous duplex of the left upper extremity which was negative for evidence of DVT. She has a little bit of pain at the thumb CMC joint but again most of the pain is localized to the flexor tendon region going into the wrist. The patient comes in today for initial evaluation and treatment. States her pain is about 4-5 on a scale of 1-10 right now. 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 She states any time she has had inflammatory issues such as that oral prednisone and Celebrex has given her excellent relief however this time it does not appear to be working for her. New past medical history sheet was reviewed and signed on the intake sheet of today's date drug allergies current medications family social history previous surgical history 10 point review of systems was reviewed and discussed in detail today with the patient. PASTORA Benavidez [address] [facility], [facility] [address], [place], [address], [place] [facility] [employer] 07/15/2024 11:48:34 09/17/2024 text/html the patient retu rns left knee pain she has severe primary osteoarthritis with kmzo-xe-paat changes lateral compartment and mild valgus deformity. It has been several months since her last cortisone injection. It has been about 7 months she has been doing very well until recently when her pain has flared up once again. She is going to be doing lots of walking in the near future for a special occasion and would like to have her knee in the best shape possible. She states the knee is a bit puffy and swollen denies any erythema heat no trauma no signs of infection. She does lack a few degrees of extension and may have a Shah cyst in the posterior knee also. She denies any mechanical symptoms no locking or catching just aching pain that limits what she can do at times. Sometimes she has trouble with standing or walking for long periods has trouble squatting kneeling going up and down stairs. For now she does well with cortisone which gives her several months of relief. She would like to repeat a cortisone injection again today. The patient has previous medical history was reviewed with her in detail today. She denies any recent changes in her medical history. PASTORA Benavidez [address] [facility], [facility] [address], [place], [address], [facility] [facility] 09/17/2024 12:23:16 OBGyn Episode No OBEpisode recorded.
--- OUTSIDE RECORDS SUMMARY | 2024-10-25 16:04 | XMS_ITS | Clinical Summary ---
Author Organization [facility] Health Address [address] [place] [address] Care Team Providers Care Grants Specialist Name Role Phone Unavailable Primary Care Provider Unavailabl e Social History Tobacco Use Types Packs/Day Years Used Date Smoking Tobacco: Never Assessed Sex and Gender Information Value Date Recorded Sex Assigned at Not on file Legal Sex Male 8:39 PM PDT Gender Identity Not on file Sexual Orientation Not on file Plan of Treatment Not on file
--- OUTSIDE RECORDS SUMMARY | 2024-10-25 16:04 | XMS_ITS | Clinical Summary ---
Author Organization [facility] [employer] Address [address] [place] [address] Care Team Providers [employer] Name Role Phone Clifton Espinoza MD Primary Care Provider [phone] Source Comments [facility] [employer],non-owned Affiliates and Associated Physician Practices is amultiple site organization consisting of ambulatory clinics and hospital sitesin [place], [place], [place] and [place]. This disclosure is being madepursuant to the Care Everywhere program and may not contain all information available regarding this patient. Last updated 18.[facility] [employer] Allergies Active Allergy Reactions Criticality Noted Date Comments Meloxicam 01/19/2015 Medications * Be aware that medications may not be up to date on this document. Alwaysverify current medications with the patient. ezetimibe (ZETIA) 10 MG tablet Take 10 mg by mouth once daily Active acetaminophen (TYLENOL) 500 MG tablet Take 1,000 mg by mouth once daily Maximum allowable Acetaminophen amount = 4 Grams (4000 mg) / 24 hours. Active buPROPion SR 12hr (WELLBUTRIN-SR ) 150 MG tablet Take 150 mg by mouth once daily Active losartan (COZAAR) 100 MG tablet Take 100 mg by mouth once daily Active traMADol (ULTRAM) 50 MG tablet Take 50 mg by mouth every 6 hours as needed for Pain Active Menaquinone-7 (VITAMIN K2 PO) Active omeprazole (PRILOSEC) 20 MG capsule Take 20 mg by mouth daily before breakfast Active oxybutynin (DITROPAN) 5 MG tablet Take 5 mg by mouth 3 times daily Active nebivolol (BYSTOLIC) 10 MG tablet Take 10 mg by mouth once daily Active cyclobenzaprin e (FLEXERIL) 10 MG tablet Take 1 Tab by mouth at bedtime 30 Tab 0 5 Active methylPREDNISo lone (MEDROL DOSEPAK) 4 MG tablet Take by mouth as directed 21 Packet 1 5 Active Active Problems Problem Noted Date Diagnosed Date Monoarthritis of knee 02/21/2015 Ankylosing spondylitis 01/19/2015 Family History Medical History Relation Name Comments Cancer Father prostate Heart Failure Father Relation Name Status Comments Father Social History Tobacco Use Types Packs/Day Years Used Date Smoking Tobacco: Former Cigarettes Alcohol Use Standard Drinks/Week Comments Yes 0 (1 standard drink = 0.6 oz pur e alcohol) Comments Unknown Sex and Gender Information Value Date Recorded Sex Assigned at Not on file Legal Sex Female 11:28 AM CDT Gender Identity Not on file Sexual Orientation Not on file Last Filed Vital Signs Vital Sign Reading Time Taken Comments Blood Pressure 132/88 04/12/2015 3:03 PM [employer] Pulse 86 04/12/2015 3:03 PM [employer] Temperature - - Respiratory Rate - - Oxygen Saturation - - Inhaled Oxygen Concentration - - Weight 74.4 kg (164 lb) 04/12/2015 3:03 PM [employer] Height - - Body Mass Index - - Plan of Treatment Health Maintenance Due Date Last Done Comments BONE DENSITY TESTING 1950 COLOGUARD (AGES 45-75) - COL ON CA SCREENING 1950 COLON MONITORING 1950 COLONOSCOPY - COLON CA SCREENING 1950 CT COLONOGRAPHY - COLON CA SCREENING 1950 Colorectal Cancer Screening 1950 FIT - COLON CA SCREENING 1950 FLEX SIG - COLON CA SCREENING 1950 LIPID TESTING 1950 MAMMOGRAM 1950 HEPATITIS C SCREENING 10/10/1969 DTAP/TDAP/TD VACCINES (1 - Tdap) 10/14/1970 PNEUMOCOCCAL VACCINE 50+ (1 of 1 - PCV) 10/14/2001 ZOSTER VACCINE (1 of 2) 10/14/2001 COVID-19 VACCINE ( - 2023-2 5 season) 2024 DEPRESSION SCREENING 05/12/2024 INFLUENZA VACCINE (Season Ended) 2025 Respiratory Syncytial Virus (RSV) Vaccine Pt: or over 60 yrs (1 - 1-dose 75+ series) 10/14/2026 HEPATITIS B VACCINE Aged Out No longe r eligible based on patient's age to complete this topic HIB VACCINE Aged Out No longer eligi ble based on patient's age to complete this topic HPV VACCINE Aged Out No longer eligi ble based on patient's age to complete this topic MENINGOCOCCAL (Group B) VACC INE SHARED DECISION-MAKING Aged Out No longer eligibl e based on patient's age to complete this topic MENINGOCOCCAL GROUPS A/C/Y/W VACCINE Aged Out No longer eligible b ased on patient's age to complete this topic Insurance ANTHEM ANTHEM Care Teams [employer] Relationship Specialty Start Date End Date Clifton Espinoza MD [address] [place] [address] PCP - General 06/28/22
== END 2024-10-25 14:52 | disposition home or self-care (01) ==
PROVIDERS: PCP Family Medicine; Visit Provider Nurse Practitioner Family
DX: M85.89 Other specified disorders of bone density and structure, multiple sites (principal); Z78.0 Asymptomatic menopausal state; Z13.820 Encounter for screening for osteoporosis
CPT/HCPCS: 77080

== ENCOUNTER 2025-01-11 10:44 | Outpatient (CLI) | payer BC, SELFPAY ==
--- NOTE | ~2025-01-11 | MM_ITS ---
EXAMINATION: MM screening [facility] BI w gold HISTORY: Screening TECHNIQUE: Craniocaudal and mediolateral oblique 3-D tomosynthesis images were obtained and synthetic 2-D images were generated. CAD analysis was submitted and interpreted. COMPARISON: Mammograms from 12/01/2022 and 08/28/2021 BREAST PARENCHYMAL COMPOSITION: There are scattered areas of fibroglandular density. FINDINGS: There is no evidence of suspicious mass, calcification, or architectural distortion to suggest malignancy. There has been no suspicious interval change. IMPRESSION: 1. No mammographic evidence of malignancy. Recommend routine screening mammography in one year. BI-RADS Category 2: Benign finding(s) Reviewed, dictated and finalized at location Q. IMPRESSION: 1. No mammographic evidence of malignancy. Recommend routine screening mammogra phy in one year. BI-RADS Category 2: Benign finding(s)
== END 2025-01-11 10:45 | disposition home or self-care (01) ==
PROVIDERS: PCP Obstetrics & Gynecology; Visit Provider Family Medicine
DX: Z12.31 Encounter for screening mammogram for malignant neoplasm of breast (principal)
CPT/HCPCS: 77063; 77067